=== PATIENT | female | born 1960 | race Caucasian/White ===

== ENCOUNTER 2016-05-08 06:25 | Emergency (ER) | payer OTHER ==
[~2016-05-08] VITALS: Ht 175.3 cm; Wt 71.5 kg
[~2016-05-08 06:25] MED LIST: BISA-57 PO; CIPR500T4 PO; HYDR2TAB15 PO; METO10TA92 PO; METR500T14 PO; PANT40TA4 PO
[2016-05-08 06:28] VITALS: Ht 175.3 cm; Wt 71.5 kg
[2016-05-08] MEDS ORDERED: HYDROmorphONE 1 MG/ML SYG IV STA (06:37)
[2016-05-08] MEDS ORDERED: SOD CHLORIDE 0.9% 500 ML IV STA (06:37)
[2016-05-08] MEDS ORDERED: ONDANSETRON 4 MG INJ IV STA (06:37)
[2016-05-08 07:17] LABS: HEMATOCRIT 43.3 % (37.0-47.0); MEAN CORPUSCULAR HEMOGLOBIN 33.4 pg (29.0-33.0); MEAN CORPUSCULAR HGB CONC 34.7 g/dl (32.0-37.0); MEAN CORPUSCULAR VOLUME 96.4 fl (82.0-101.0); MEAN PLATELET VOLUME 8.9 fl (7.4-10.4); PLATELET COUNT 58 10^3/UL (140-440); RED BLOOD COUNT 4.49 10^6/ul (4.20-5.40); RED CELL DISTRIBUTION WIDTH 12.9 % (11.5-14.5); UNCORRECTED WBC 3.3 10^3/ul (4.8-10.8); WHITE BLOOD COUNT 3.3 10^3/ul (4.8-10.8)
[2016-05-08 07:19] LABS: CONDITION 1; LH ANALYZER COMMENTS 1
[2016-05-08 07:33] LABS: ADD UMIC NO; URINE BILIRUBIN (Dip) NEGATIVE (NEGATIVE); URINE BLOOD (Dip) NEGATIVE (NEGATIVE); URINE COLOR YELLOW (YELLOW); URINE GLUCOSE (Dip) NEGATIVE (NEGATIVE); URINE KETONES (Dip) NEGATIVE (NEGATIVE); URINE LEUKOCYTE ESTERASE (Dip) NEGATIVE (NEGATIVE); URINE NITRITE (Dip) NEGATIVE (NEGATIVE); URINE TOTAL PROTEIN (Dip) NEGATIVE (NEGATIVE); URINE UROBILINOGEN (Dip) 0.2 E.U./dL (0.1-1.0)
--- NOTE | 2016-05-08 07:34 | RADRPT ---
PROCEDURE: CT of the abdomen and pelvis without contrast CLINICAL INDICATION: Patient experiencing Abdominal Pain. TECHNIQUE: Spiral CT images through the abdomen and pelvis without the use of contrast. The admin istered radiation dose is CTDI 9.29 and DLP 496.74. One or more of the following dose reduction patti hniques were used: automated exposure control, adjustment of the mA and/or kV according to patient s ize, or use of iterative reconstruction technique. COMPARISON: 02/01/2016 FINDINGS: Lack of oral and intravenous contrast somewhat limits evaluation. Slight dependent atelectasis of the lung bases is seen. No pleural effusion is seen. Again seen is a nodular contour of the liver consistent with cirrhosis with mild periportal edema an d splenomegaly again seen. The gallbladder is again noted to be distended. Small nonobstructing ri ght renal stone is unchanged. The adrenals, left kidney, and pancreas are unremarkable in appearanc e. There is mild atherosclerotic change of the aorta. Slight haziness of mesenteric fat is unchang ed. The appendix is normal in appearance. . Large colonic stool burden is seen. Again seen is co lonic diverticulosis. The previous changes of sigmoid diverticulitis have resolved. There is a sma ll amount of free fluid in the pelvis. There is wall thickening of several jejunal loops with adjac ent mesenteric haziness. The wall thickening is a new finding although on the prior study feculent contents were present in these small bowel loops and haziness of the mesenteric fat was seen on the prior study although this was in conjunction with ongoing sigmoid diverticulitis which was also causing inflammatory change. No adenopathy is seen. No transition point is seen and the affected s mall bowel loops are not markedly dilated. There is mild degenerative change of the spine. The ut erus and adnexal regions are grossly unremarkable.. IMPRESSION: Diverticulosis but resolved sigmoid diverticulitis. Proximal jejunal loops showing wall thickening with slight mesenteric haziness. The appearance is not specific and could be due to infectious ente ritis or other small bowel process. Study with IV and oral contrast may be helpful for further eval uation. Cirrhosis and splenomegaly. Stable distended gallbladder and small right renal stone. RPTAT: HLBE Lurdes Guillory, Physician Date Time Electronically viewed and signed by Lurdes Guillory, Physician on 05/08/2016 07:33 LE/
[2016-05-08] MEDS ORDERED: DIVA500T7 PO (08:10)
[2016-05-08] MEDS ORDERED: DIVA250T60 PO (08:10)
[2016-05-08 08:18] LABS: ALBUMIN 3.8 g/dl (3.3-4.9); POTASSIUM 5.1 mmol/L (3.5-5.1)
[2016-05-08 08:20] LABS: ALBUMIN/GLOBULIN RATIO 0.9; BILIRUBIN,INDIRECT 0.7 mg/dl (0-1.1); BILIRUBIN,TOTAL 0.7 mg/dl (0.2-1.3); CREATININE 0.72 mg/dl (0.44-1.00)
[2016-05-08 08:21] LABS: CALCIUM 8.5 mg/dl (8.4-10.2)
[2016-05-08] MEDS ORDERED: METR500T PO (08:31)
[2016-05-08] MEDS ORDERED: CIPR500T4 PO (08:31)
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
[2016-05-08] MEDS ORDERED: HYDR-906 PO (08:55)
[2016-05-08] MEDS ORDERED: ONDA4TAB8 PO (08:55)
[2016-05-08 08:59] VITALS: BP 127/87; PULSE 77; RESP 18; TEMP 98.9
[2016-05-08 10:57] LABS: EOSINOPHILS # 0.1 10^3/ul (0.0-0.5); MONOCYTE # 0.6 10^3/ul (0.3-0.9); NEUTROPHIL # 1.6 10^3/ul (1.6-7.5); PLATELET ESTIMATE PLT APPEAR DECREASED
== END 2016-05-08 09:00 | disposition home or self-care (01) ==
LOC: E/R 06:25
DX: K57.92 Diverticulitis of intestine, part unspecified, without perforation or abscess without bleeding (principal); R11.0 Nausea; R40.2142 Coma scale, eyes open, spontaneous, at arrival to emergency department; R40.2362 Coma scale, best motor response, obeys commands, at arrival to emergency department; R40.2252 Coma scale, best verbal response, oriented, at arrival to emergency department
CPT/HCPCS: 36415; 74176; 80053; 81003; 83690; 85025; 96374; 96375; J1170; J2405; J7040; Z7502